=== PATIENT | male | born 1955 | race Caucasian/White ===

== ENCOUNTER 2017-02-28 16:20 | Emergency (ER) | payer OTHER ==
[~2017-02-28] VITALS: Ht 170.2 cm; Wt 65.9 kg
[2017-02-28 16:32] VITALS: BP 100/61; PULSE 90; RESP 16; TEMP 97.2; O2SAT 100
[2017-02-28] MEDS ORDERED: SODIUM CHLORIDE 0.9% FLUSH 10 ML FLUSH IV FLUSH PRN (16:45)
--- NOTE | 2017-02-28 17:15 | PD ---
HPI Chief Complaint: Abnormal Results Time Seen by Provider: 16:45 Travel History International Travel<30 days: No Contact w/Intl Traveler<30days: No Traveled to known affect area: No History of Present Illness HPI Patient 62-year-old male presents emergency department for evaluation of abnormal labs. 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 He is followed there currently. He had routine lab work drawn this week which showed that his BUN/creatinine were slightly elevated as well as potassium of 5.7. He was called by the lung sales planning coordinator at [facility] "Mandy" ([phone]) today and told to go to the nearest emergency room for fluids and workup. The patient's postoperative course has been complicated by a Mycobacterium avium complex infection or the like. He is currently on several antibiotics and one inhaled antibiotic for this. Patient states that shortness of breath is been gradually worsening over the past 4-6 weeks. Patient states he otherwise is feeling about his norm. Denies any fevers denies any nausea vomiting abdominal pain. Symptoms are mild, onset today, associated signs and symptoms as above, context as above. 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) Social History Alcohol Use: No Tobacco Use: No Substance Use: No Allergies-Medications (Allergen,Severity, Reaction): Coded Allergies: No Known Allergies (Verified Allergy, Unknown, 02/28/17) Reported Meds & Prescriptions Reported Meds & Active Scripts Active Reported Amphotericin B Powder (Bulk) 1 Pow Pow 20 Mg NEB BID Proair Hfa 8.5 GM Inh (Albuterol Sulfate) 90 Mcg/Act Aer 2 Puff INH PRIOR TO AMPHOTER [place] 108 mcg/actuation Pulmozyme Neb (Dornase Mark) 1 Mg/Ml Amp 2.5 Mg NEB BID Amikacin Powder (Amikacin Sulfate) 1 Pow Pow 125 Mg NEB BID Flonase Nasal [place] (Fluticasone Nasal [place]) 50 Mcg/Act [place] 50 Mcg EACH NARE BID Ferrous Sulfate Liq (Ferrous Sulfate) 300 Mg/5 Ml Soln 300 Mg PO BID Mepron Liq (Atovaquone) 750 Mg/5 Ml Susp 1,500 Mg PO DAILY Take with food. Valcyte Liq (Valganciclovir Liq) 50 Mg/Ml Soln 9 Ml PO DAILY Gabapentin Liq (Gabapentin) 250 Mg/5 Ml Soln 12 Ml PO TID Tygacil Inj (Tigecycline) 50 Mg Inj 50 Mg IV HS Lovenox Inj (Enoxaparin Sodium) 40 Mg/0.4 Ml Syr 40 Mg SQ BID Dificid (Fidaxomicin) 200 Mg Tab 200 Mg PO BID Clofazimine (Bulk) 1 Powd 100 Mg PO DAILY Azithromycin 500 Mg Tab 500 Mg PO HS Trazodone (Trazodone HCl) 50 Mg Tab 50 Mg PO HS PRN Magox 400 (Magnesium Oxide) 400 Mg Tablet 2 Tab PO BID Citalopram (Citalopram Hydrobromide) 20 Mg Tab 20 Mg PO DAILY Amlodipine (Amlodipine Besylate) 5 Mg Tab 5 Mg PO DAILY Multiple Vitamin 1 Tab 1 Tab PO DAILY Calcium 600 mg Plus Vit D Tab (Calc/D3/Mag/Zn/Maxx/[place]) 600 Mg-200 Tablet 1 Tab PO BID Vitamin D3 (Cholecalciferol) 1,000 Unit Tab 1,000 Units PO DAILY Lansoprazole 30 Mg Capdr 30 Mg PO BID Cresemba (Isavuconazonium) 186 Mg Cap 2 Tab PO DAILY Myfortic (Mycophenolate Sodium) 360 Mg Tab 720 Mg PO BID Hydrocortisone 10 Mg Tab 10 Mg PO HS Take with food to decrease GI upset Hydrocortisone 10 Mg Tab 30 Mg PO A.M. Take with food to decrease GI upset Tacrolimus 1 Mg Cap 1 Mg PO Q12H Tacrolimus 0.5 Mg Cap 0.5 Mg PO A.M. Review of Systems Except as stated in HPI: all other systems reviewed are Neg Physical Exam Narrative GENERAL: WD.WN in nad. SKIN: Warm and dry. HEAD: Atraumatic. Normocephalic. EYES: Pupils equal and round. No scleral icterus. No injection or drainage. ENT: No nasal bleeding or discharge. Mucous membranes pink and moist. NECK: Trachea midline. No JVD. CARDIOVASCULAR: Regular rate and rhythm. RESPIRATORY: No accessory muscle use. Clear to auscultation. Breath sounds equal bilaterally. GASTROINTESTINAL: Abdomen soft, non-tender, nondistended. Hepatic and splenic margins not palpable. MUSCULOSKELETAL: Extremities without clubbing, cyanosis, or edema. No obvious deformities. NEUROLOGICAL: Awake and alert. No obvious cranial nerve deficits. Motor grossly within normal limits. Five out of 5 muscle strength in the arms and legs. Normal speech. PSYCHIATRIC: Appropriate mood and affect; insight and judgment normal. Data Data Last Documented VS Vital Signs Date Time Temp Pulse Resp B/P (MAP) Pulse Ox O2 Delivery O2 Flow Rate FiO2 02/28/17 19:14 20 110/60 (77) 99 02/28/17 17:17 Room Air 02/28/17 16:32 97.2 90 Orders Orders Complete Blood Count With Diff (02/28/17 16:45) Comprehensive Metabolic Panel (02/28/17 16:45) Iv Access Insert/Monitor (02/28/17 16:45) Ecg Monitoring (02/28/17 16:45) Oximetry (02/28/17 16:45) Sodium Chloride 0.9% Flush (Ns Flush) (02/28/17 16:45) Electrocardiogram (02/28/17 16:45) Chest, Single Ap (02/28/17 ) Ed Discharge Order (02/28/17 18:52) Labs Laboratory Tests Test 02/28/17 17:05 White Blood Count 3.0 TH/MM3 Red Blood Count 3.29 MIL/MM3 Hemoglobin 10.2 GM/DL Hematocrit 30.6 % Mean Corpuscular Volume 93.3 FL Mean Corpuscular Hemoglobin 31.1 PG Mean Corpuscular Hemoglobin Concent 33.3 % Red Cell Distribution Width 15.9 % Platelet Count 393 TH/MM3 Mean Platelet Volume 8.5 FL Neutrophils (%) (Auto) 84.6 % Lymphocytes (%) (Auto) 7.9 % Monocytes (%) (Auto) 7.0 % Eosinophils (%) (Auto) 0.3 % Basophils (%) (Auto) 0.2 % Neutrophils # (Auto) 2.5 TH/MM3 Lymphocytes # (Auto) 0.2 TH/MM3 Monocytes # (Auto) 0.2 TH/MM3 Eosinophils # (Auto) 0.0 TH/MM3 Basophils # (Auto) 0.0 TH/MM3 CBC Comment DIFF FINAL Differential Comment Blood Urea Nitrogen 30 MG/DL Creatinine 0.99 MG/DL Random Glucose 101 MG/DL Total Protein 5.4 GM/DL Albumin 2.6 GM/DL Calcium Level 8.0 MG/DL Alkaline Phosphatase 135 U/L Aspartate Amino Transf (AST/SGOT) 20 U/L Alanine Aminotransferase (ALT/SGPT) 44 U/L Total Bilirubin 0.3 MG/DL Sodium Level 136 MEQ/L Potassium Level 4.6 MEQ/L Chloride Level 100 MEQ/L Carbon Dioxide Level 28.7 MEQ/L Anion Gap 7 MEQ/L Estimat Glomerular Filtration Rate 76 ML/MIN MDM Medical Decision Making Medical Screen Exam Complete: Yes Emergency Medical Condition: Yes Differential Diagnosis dehydration, ANTOINE, electrolyte abnormality. Narrative Course Last 24 hours Impressions Chest X-Ray 02/28/17 0000 Signed Impressions: Service Date/Time: Tuesday, February 28, 2017 18:40 - CONCLUSION: No acute disease. Rivera Vilchis MD Patient roomed in ed, labs are reassuring. Discussed the patient with his transplant Dr. At [facility]. She agrees he is stable for discharge. Call the office tomorrow for further instruction. Diagnosis Primary Impression: Hyperkalemia Disposition: DISCHARGE HOME Condition: Stable Nathaniel Bhatti MD Feb 28, 2017 17:15
[2017-02-28 17:17] VITALS: O2SAT 99
[2017-02-28 17:27] LABS: AUTOMATED NEUTROPHIL # 2.5 TH/MM3 (1.8-7.7); BASOPHIL % 0.2 % (0.0-2.0); EOSINOPHIL % 0.3 % (0.0-4.0); HEMATOCRIT 30.6 % (39.0-51.0); LYMPH % 7.9 % (9.0-44.0); LYMPHOCYTE # 0.2 TH/MM3 (1.0-4.8); MEAN CELL VOLUME 93.3 FL (80.0-100.0); MEAN CORPUSCULAR HEMOGLOBIN 31.1 PG (27.0-34.0); MEAN CORPUSCULAR HGB CONC 33.3 % (32.0-36.0); NEUT % 84.6 % (16.0-70.0); PLATELET COUNT 393 TH/MM3 (150-450); RED BLOOD COUNT 3.29 MIL/MM3 (4.50-5.90); RED CELL DISTRIBUTION WIDTH 15.9 % (11.6-17.2)
[2017-02-28 17:39] LABS: CHLORIDE 100 MEQ/L (98-107); HEMO FLAGS DIFF FINAL; POTASSIUM 4.6 MEQ/L (3.5-5.1); SODIUM (NA) 136 MEQ/L (136-145)
[2017-02-28 17:42] LABS: ANION GAP 7 MEQ/L (5-15); BICARBONATE 28.7 MEQ/L (21.0-32.0)
[2017-02-28 17:43] LABS: BLOOD UREA NITROGEN 30 MG/DL (7-18)
[2017-02-28] MEDS ORDERED: TACR1CAP PO (17:44)
[2017-02-28] MEDS ORDERED: MAGO400T2 PO (17:44)
[2017-02-28] MEDS ORDERED: HYDR10TA65 PO ×2 (17:44)
[2017-02-28] MEDS ORDERED: TH C600T4 PO (17:44)
[2017-02-28] MEDS ORDERED: TRAZ50TA12 PO (17:44)
[2017-02-28] MEDS ORDERED: [UNRECOGNIZED DRUG - CODE] IV (17:44)
[2017-02-28] MEDS ORDERED: [UNRECOGNIZED DRUG - CODE] NEB (17:44)
[2017-02-28] MEDS ORDERED: [UNRECOGNIZED DRUG - CODE] PO (17:44)
[2017-02-28] MEDS ORDERED: FERR300S PO (17:44)
[2017-02-28] MEDS ORDERED: VITA100064 PO (17:44)
[2017-02-28] MEDS ORDERED: AZIT500T2 PO (17:44)
[2017-02-28] MEDS ORDERED: DIFI200T PO (17:44)
[2017-02-28] MEDS ORDERED: ENOX40P SQ (17:44)
[2017-02-28] MEDS ORDERED: [UNRECOGNIZED DRUG - CODE] PO (17:44)
[2017-02-28] MEDS ORDERED: MULTTAB67 PO (17:44)
[2017-02-28] MEDS ORDERED: TACR0.5C PO (17:44)
[2017-02-28] MEDS ORDERED: FLUT1SPR5 EACH NARE (17:44)
[2017-02-28] MEDS ORDERED: [UNRECOGNIZED DRUG - CODE] PO (17:44)
[2017-02-28] MEDS ORDERED: GABA250S7 PO (17:44)
[2017-02-28] MEDS ORDERED: LANS30CA PO (17:44)
[2017-02-28] MEDS ORDERED: MYCO360 PO (17:44)
[2017-02-28] MEDS ORDERED: [UNRECOGNIZED DRUG - CODE] NEB (17:44)
[2017-02-28] MEDS ORDERED: CITA20TA4 PO (17:44)
[2017-02-28] MEDS ORDERED: PULM1SOL NEB (17:44)
[2017-02-28] MEDS ORDERED: ALBUAER3 INH (17:44)
[2017-02-28] MEDS ORDERED: ATOV750UDC PO (17:44)
[2017-02-28] MEDS ORDERED: AMLO5TAB2 PO (17:44)
[2017-02-28 17:45] LABS: ALT (GPT) 44 U/L (12-78)
[2017-02-28 17:46] LABS: AST (GOT) 20 U/L (15-37); GLOMERULAR FILTRATION RATE 76 ML/MIN (>89)
[2017-02-28 17:47] LABS: TOTAL BILIRUBIN ADULT 0.3 MG/DL (0.2-1.0)
[2017-02-28 17:48] LABS: ALKALINE PHOSPHATASE 135 U/L (45-117)
[2017-02-28 19:14] VITALS: BP 110/60
--- NOTE | 2017-02-28 19:27 | RADRPT ---
EXAM DATE/TIME: 02/28/2017 18:40 [place] COMPARISON: No previous studies available for comparison. INDICATIONS : Shortness of breath. MEDICAL HISTORY : Hypertension. Chronic obstructive pulmonary disease. SURGICAL HISTORY : Double lung transplant, J tube ENCOUNTER: Initial ACUITY: 1 day PAIN SCORE: 6/10 LOCATION: Bilateral chest FINDINGS: There is a PICC line in place from the left arm with the tip overlying the SVC. The heart size is nor mal. Clips are seen over the medial aspects of the chest bilaterally. There is minimal linear density at the right base likely related to minimal scarring or atelectasis. Otherwise, the lungs appear donal ssly clear. No effusion is seen. CONCLUSION: No acute disease. Rivera Vilchis MD on February 28, 2017 at 19:24 Board Certified Radiologist. This report was verified electronically.
--- NOTE | 2017-02-28 21:18 | EKG ---
Date Performed: 02/28/2017 Time Performed: 17:31:50 PTAGE: 62 years EKG: Sinus rhythm NORMAL ECG NO PREVIOUS TRACING DOCTOR: Bill Roberts Interpretating Date/Time 02/28/2017 21:17:31
== END 2017-02-28 19:17 | disposition home or self-care (01) ==
LOC: PHED 16:20
DX: E87.5 Hyperkalemia (principal); A31.8 Other mycobacterial infections; R06.02 Shortness of breath; J44.9 Chronic obstructive pulmonary disease, unspecified; Z94.2 Lung transplant status; Z79.01 Long term (current) use of anticoagulants
CPT/HCPCS: 71010; 80053; 85025; 93005; 99285